=== PATIENT | female | born 1950 | race Caucasian/White ===

== ENCOUNTER 2016-11-05 19:23 | Emergency (ER) | payer BC ==
[~2016-11-05] VITALS: Ht 170.2 cm; Wt 92.0 kg
[~2016-11-05 19:23] MED LIST changes: -NAPR1TAB9 PO; -RIVA1.5T PO; -[UNRECOGNIZED DRUG - CODE] PO
[2016-11-05 19:25] VITALS: TEMP 36.8; Ht 170.2 cm; Wt 92.0 kg
[2016-11-05] MEDS ORDERED: [UNRECOGNIZED DRUG - CODE] PO (20:26)
[2016-11-05] MEDS ORDERED: NAPR1TAB9 PO (20:27)
[2016-11-05] MEDS ORDERED: OPTIRAY 320 IV PRN (20:30)
[2016-11-05 20:36] LABS: BASO % 0.6 %; BASO ABS # 0.04 K/uL (0-0.2); COMPLETE YES; EOS % 4.5 %; HEMATOCRIT 40.6 % (37-47); IG% 0.2 %; LYMPH ABS # 1.95 K/uL (1.2-3.4); MEAN CELL VOLUME 86.4 fL (80-100); MEAN CORPUSCULAR HEMOGLOBIN 29.4 pg (25-34); MEAN PLATELET VOLUME 10.1 fL (7.4-10.4); MONO % 5.2 %; NEUT % 59.5 %; PLATELET COUNT 321 K/uL (130-400); WHITE BLOOD COUNT 6.49 K/uL (4.8-10.8)
[2016-11-05 20:56] LABS: BUN/CREATININE RATIO 17.4 (10-20); CALCIUM 9.1 mg/dl (8.5-10.1); CARBON DIOXIDE 31 mmol/L (21-32); CHLORIDE 102 mmol/L (98-107); CREATININE 0.95 mg/dl (0.60-1.20); GLUCOSE 78 mg/dl (70-99); POTASSIUM 3.5 mmol/L (3.5-5.1); SODIUM 139 mmol/L (136-145)
[2016-11-05 21:22] LABS: BLOOD UREA NITROGEN 17 mg/dl (7-18)
--- NOTE | 2016-11-05 21:37 | DIAGNOSTIC IMAGING REPORT ---
ULTRASOUND VENOUS DOPPLER LWR EXT BILA CLINICAL HISTORY: Lower leg swelling. COMPARISON STUDY: No previous studies for comparison. FINDINGS: On the right, no thrombus is visualized in the common femoral, superficial femoral, or popliteal veins. In the popliteal fossa, there is thrombus within paired veins but these do not appear to represent the posterior tibial peroneal or anterior tibial veins. They potentially represent a superficial perforators. There is a complex popliteal fossa cyst measuring 5.5 cm in maximal diameter. There is thrombus within the greater saphenous vein of the right calf. On the left, there is again no thrombus in the common femoral superficial femoral or popliteal veins. There is again thrombus within paired veins and the popliteal fossa which again do not appear to represent the posterior tibial, peroneal or anterior tibial veins. These again may represent lip reading teacher veins. There is a 5.3 cm left popliteal fossa cyst. IMPRESSION: 1. No evidence of [id number] DVT 2. Bilateral popliteal fossa venous thrombus. I suspect that these represent superficial perforating vessels. 3. Bilateral popliteal cysts 4. Right greater saphenous calf vein thrombus Electronically signed by: Ronni Swan M.D. 11/05/2016 9:36 PM Dictated Date/Time: 11/05/2016 9:28 PM
--- NOTE | 2016-11-05 21:44 | DIAGNOSTIC IMAGING REPORT ---
CT ANGIOGRAM OF THE CHEST CLINICAL HISTORY: Chest pain and leg swelling. COMPARISON STUDY: No previous studies for comparison. TECHNIQUE: Following the IV administration of 92 mL of Optiray-320, CT angiogram of the thorax was performed from the thoracic inlet to the lung bases utilizing the pulmonary embolus protocol. Images are reviewed in the axial, sagittal, and coronal planes. IV contrast was administered without complication. MIP imaging was performed. CT DOSE: 367.26 mGy.cm FINDINGS: There is a partially visualized right renal hypodensity. This likely represents a cyst. There are scattered subcentimeter hepatic hypodensities. No pathologically enlarged axillary mediastinal or hilar lymph nodes were visualized. There was no evidence of thoracic aortic dilatation. There is a tiny left lower lobe pulmonary artery filling defect, consistent with an embolus. No pleural effusions are visualized. There are dependent atelectatic changes. There is no lobar consolidation. IMPRESSION: 1. Tiny left lower lobe pulmonary artery filling defect consistent with a pulmonary embolism Electronically signed by: Ronni Swan M.D. 11/05/2016 9:43 PM Dictated Date/Time: 11/05/2016 9:38 PM
[2016-11-05] MEDS ORDERED: ACETAMINOPHEN 325 MG TAB PO STA (22:03)
[2016-11-05 22:41] LABS: PARTIAL THROMBOPLASTIN RATIO 1.1; PROTHROMBIN TIME (PATIENT) 10.7 SECONDS (9.0-12.0)
[2016-11-05] MEDS ORDERED: RIVAROXABAN TAB 15 MG TAB PO STA (23:50)
--- NOTE | 2016-11-06 | Medical Consult ---
Consultation Date of Consultation: Nov 05, 2016. Attending Physician: Reason for Consultation: DVTs , PE History of Present Illness 65 y/o F Hx depression and HPL. She may have a history of Factor V Leiden mutation as well. She recently travelled to [place] and experienced pain and swelling of both lower extremities. She presented to the ER and a LE US revealed B/L - below the knee DVTs. She was sent for a CTA subsequently which is + for a small LLL PE. She has not had CP or SOB. She has not exhibited tachycardia or hypoxia. The pt has a strong family history of DVTs/PEs but had not previously had a DVT herself. Past Medical/Surgical History HPL Depression Uterine prolapse Family History Patient reports no known family medical history. Hypercoagulable disorder - mother and both daughters - does not know which but thinks it may be Factor V nutation Social History Smoking Status: Never Smoker Housing Status: lives with family Occupation Status: employed Allergies Coded Allergies: No Known Allergies (Verified Allergy, Unknown, 07/20/06) Current Inpatient Medications Current Inpatient Medications Medications (Trade) Dose Ordered Sig/Jennifer Route Start Time Stop Time Status Last Admin Dose Admin Ioversol (Optiray 320) 111 ml UD PRN IV 11/05/16 20:30 11/09/16 20:29 Review of Systems Constitutional: No chills, No fever, No sweats Eyes: No eye pain, No worsening of vision ENT: No hearing loss, No nasal symptoms, No unusual epistaxis Respiratory: No cough, No sputum, No wheezing Cardiovascular: No PND, No chest pain, No orthopnea Abdomen: No nausea, No pain, No vomiting Musculoskeletal: + calf pain, + swelling, No joint pain, No muscle pain Genitourinary - Female: No dysuria, No urinary frequency, No urinary urgency Neurologic: No memory loss, No paralysis, No weakness Psychiatric: No depression symptoms Endocrine: No fatigue Hematologic / Lymphatic: No abnormal bleeding/bruising Integumentary: No rash Allergic / Immunologic: No environmental allergies Physical Exam Date Time Temp Pulse Resp B/P Pulse Ox O2 Delivery O2 Flow Rate FiO2 11/05/16 23:03 92 18 121/80 95 Room Air 11/05/16 19:25 36.8 93 18 130/86 99 Room Air General Appearance: WD/WN, no apparent distress Head: normocephalic, atraumatic Eyes: normal inspection, PERRL, EOMI ENT: normal ENT inspection, hearing grossly normal, TMs normal, pharynx normal Neck: supple, no adenopathy, thyroid normal, no JVD Respiratory/Chest: chest non-tender, lungs clear, normal breath sounds Cardiovascular: regular rate, rhythm, no edema, no gallop, no JVD, no murmur, normal peripheral pulses Abdomen/GI: normal bowel sounds, non tender, soft Back: normal inspection, no CVA tenderness Extremities/Musculoskelatal: + pedal edema, + swelling Neurologic/Psych: flour broker II-XII nml as tested, no motor/sensory deficits, alert, normal mood/affect, normal reflexes, oriented x 3 Skin: normal color, warm/dry, no rash Lymphatic: no adenopathy Laboratory Results Last 24 Hours Test 11/05/16 20:13 11/05/16 22:26 White Blood Count 6.49 K/uL Red Blood Count 4.70 M/uL Hemoglobin 13.8 g/dL Hematocrit 40.6 % Mean Corpuscular Volume 86.4 fL Mean Corpuscular Hemoglobin 29.4 pg Mean Corpuscular Hemoglobin Concent 34.0 g/dl Platelet Count 321 K/uL Mean Platelet Volume 10.1 fL Neutrophils (%) (Auto) 59.5 % Lymphocytes (%) (Auto) 30.0 % Monocytes (%) (Auto) 5.2 % Eosinophils (%) (Auto) 4.5 % Basophils (%) (Auto) 0.6 % Neutrophils # (Auto) 3.86 K/uL Lymphocytes # (Auto) 1.95 K/uL Monocytes # (Auto) 0.34 K/uL Eosinophils # (Auto) 0.29 K/uL Basophils # (Auto) 0.04 K/uL RDW Standard Deviation 41.6 fL RDW Coefficient of Variation 13.0 % Immature Granulocyte % (Auto) 0.2 % Immature Granulocyte # (Auto) 0.01 K/uL Sodium Level 139 mmol/L Potassium Level 3.5 mmol/L Chloride Level 102 mmol/L Carbon Dioxide Level 31 mmol/L Anion Gap 6.0 mmol/L Blood Urea Nitrogen 17 mg/dl Creatinine 0.95 mg/dl Est Creatinine Clear Calc Drug Dose 69.7 ml/min Estimated GFR () 73.4 Estimated GFR (Non- 63.3 BUN/Creatinine Ratio 17.4 Random Glucose 78 mg/dl Calcium Level 9.1 mg/dl Troponin I < 0.015 ng/ml Pro-B-Type Natriuretic Peptide 52 pg/ml Prothrombin Time 10.7 SECONDS Prothromb Time International Ratio 1.0 Activated Partial Thromboplast Time 27.3 SECONDS Partial Thromboplastin Ratio 1.1 Assessment & Plan 65 y/o F Hx depression and HPL. She may have a history of Factor V Leiden mutation as well. She recently travelled to [place] and experienced pain and swelling of both lower extremities. She presented to the ER and a LE US revealed B/L - below the knee DVTs. She was sent for a CTA subsequently which is + for a small LLL PE. She has not had CP or SOB. She has not exhibited tachycardia or hypoxia. The pt has a strong family history of DVT/PEs but had not previously had a DVT herself. 1) PE - DVT/PE - small clot burden in hemodynamically stable pt without cardio or resp symptoms - discussed with both pt and ER MD and will recommend D/C with Xarelto and f/u with H/O. 2) Depression - cont Venlafaxine 3) HPL - cont Statin Total time for this consult including review of previous records, labs, meds, imaging - discussion with ER MD and pt - 31 min
--- NOTE | 2016-11-06 00:10 | EMERGENCY ROOM VISIT NOTE ---
History Report prepared by Bennieibnat: Santi Castaneda Under the Supervision of: Dr. Patricio Sal D.O. First contact with patient: 20:04 Chief Complaint: SWELLING TO EXTREMITY Stated Complaint: SWELLING TO LWR EXT History of Present Illness The patient is a 65 year old female who presents to the Emergency Room with complaints of persistent bilateral lower extremity swelling starting 5 days ago. She denies any difficulty with lying down flat. She has pain with palpation on the side of her legs. She has a family history of blood clots but denies any personal history. She notes that this past weekend she tripped on the [place] and this was at least a 3-[address] ride[address] She does stop and get out to walk because of her knees but notes that she was fairly sedentary. She has no other complaints at this time. Pt denies headache, change in vision, fevers, cough, chest pain, shortness of breath, nausea, vomiting, diarrhea, pain with urination, and melena. Source of History: patient Onset: 5 days ago Position: other (bilateral lower extremities) Quality: other (swelling) Timing: other (persistent) Associated Symptoms: No SOB, No chest pain, No cough, No diarrhea, No fevers , No headache, No nausea, No vomiting Review of Systems See HPI for pertinent positives & negatives. A total of 10 systems reviewed and were otherwise negative. Past Medical & Surgical Medical Problems: (1) Depression Family History Patient reports no known family medical history. Social History Smoking Status: Never Smoker Alcohol Use: none Housing Status: lives with family Occupation Status: employed Current/Historical Medications Scheduled Hydrochlorothiazide (Hctz), 25 MG PO DAILY Lovastatin (Mevacor), 20 MG PO DAILY Primidone (Mysoline), 250 MG PO HS Venlafaxine Hcl (Venlafaxine Hcl Er), 150 MG PO DAILY Venlafaxine Hcl (Venlafaxine Extended Rel), 75 MG PO DAILY Scheduled PRN Naproxen (Aleve), 220 MG PO UD PRN for Pain Allergies Coded Allergies: No Known Allergies (Verified Allergy, Unknown, 07/20/06) Physical Exam Vital Signs Date Time Temp Pulse Resp B/P Pulse Ox O2 Delivery O2 Flow Rate FiO2 11/05/16 23:03 92 18 121/80 95 Room Air 11/05/16 19:25 36.8 93 18 130/86 99 Room Air Physical Exam GENERAL: Sitting up in bed, alert, well appearing, well nourished, no distress, non-toxic EYE EXAM: normal conjunctiva OROPHARYNX: no exudate, no erythema, lips, buccal mucosa, and tongue normal and mucous membranes are moist NECK: supple, no nuchal rigidity, no adenopathy, non-tender. No JVD. LUNGS: Clear to auscultation. Normal chest wall mechanics HEART: no murmurs, S1 normal and S2 normal ABDOMEN: abdomen soft, non-tender, normo-active bowel sounds, no masses, no rebound or guarding. BACK: Back is symmetrical on inspection and there is no deformity, no midline tenderness, no CVA tenderness. SKIN: no rashes and no bruising UPPER EXTREMITIES: upper extremities are grossly normal. LOWER EXTREMITIES: Faint bilateral pitting edema. Calves are equal bilaterally. NEURO EXAM: Normal sensorium, cranial nerves II-XII grossly intact, normal speech, no gross weakness of arms, no gross weakness of legs. Medical Decision & Procedures ER Provider Diagnostic Interpretation: CT and US :Per my review, radiologist interpretation. CT ANGIOGRAM OF THE CHEST CLINICAL HISTORY: Chest pain and leg swelling. COMPARISON STUDY: No previous studies for comparison. TECHNIQUE: Following the IV administration of 92 mL of Optiray-320, CT angiogram of the thorax was performed from the thoracic inlet to the lung bases utilizing the pulmonary embolus protocol. Images are reviewed in the axial, sagittal, and coronal planes. IV contrast was administered without complication. MIP imaging was performed. CT DOSE: 367.26 mGy.cm FINDINGS: There is a partially visualized right renal hypodensity. This likely represents a cyst. There are scattered subcentimeter hepatic hypodensities. No pathologically enlarged axillary mediastinal or hilar lymph nodes were visualized. There was no evidence of thoracic aortic dilatation. There is a tiny left lower lobe pulmonary artery filling defect, consistent with an embolus. No pleural effusions are visualized. There are dependent atelectatic changes. There is no lobar consolidation. IMPRESSION: 1. Tiny left lower lobe pulmonary artery filling defect consistent with a pulmonary embolism Electronically signed by: Ronni Swan M.D. 11/05/2016 9:43 PM Dictated Date/Time: 11/05/2016 9:38 PM ULTRASOUND VENOUS DOPPLER LWR EXT BILA CLINICAL HISTORY: Lower leg swelling. COMPARISON STUDY: No previous studies for comparison. FINDINGS: On the right, no thrombus is visualized in the common femoral, superficial femoral, or popliteal veins. In the popliteal fossa, there is thrombus within paired veins but these do not appear to represent the posterior tibial peroneal or anterior tibial veins. They potentially represent a superficial perforators. There is a complex popliteal fossa cyst measuring 5.5 cm in maximal diameter. There is thrombus within the greater saphenous vein of the right calf. On the left, there is again no thrombus in the common femoral superficial femoral or popliteal veins. There is again thrombus within paired veins and the popliteal fossa which again do not appear to represent the posterior tibial, peroneal or anterior tibial veins. These again may represent section leader screen printing veins. There is a 5.3 cm left popliteal fossa cyst. IMPRESSION: 1. No evidence of [id number] DVT 2. Bilateral popliteal fossa venous thrombus. I suspect that these represent superficial perforating vessels. 3. Bilateral popliteal cysts 4. Right greater saphenous calf vein thrombus Electronically signed by: Ronni Swan M.D. 11/05/2016 9:36 PM Dictated Date/Time: 11/05/2016 9:28 PM Laboratory Results 11/05/16 20:13 Red Blood Count 4.70, Mean Corpuscular Volume 86.4, Mean Corpuscular Hemoglobin 29.4, Mean Corpuscular Hemoglobin Concent 34.0, Mean Platelet Volume 10.1, Neutrophils (%) (Auto) 59.5, Lymphocytes (%) (Auto) 30.0, Monocytes (%) (Auto) 5.2, Eosinophils (%) (Auto) 4.5, Basophils (%) (Auto) 0.6, Neutrophils # (Auto) 3.86, Lymphocytes # (Auto) 1.95, Monocytes # (Auto) 0.34, Eosinophils # (Auto) 0.29, Basophils # (Auto) 0.04 11/05/16 20:13 Test 11/05/16 20:13 11/05/16 22:26 White Blood Count 6.49 K/uL (4.8-10.8) Red Blood Count 4.70 M/uL (4.2-5.4) Hemoglobin 13.8 g/dL (12.0-16.0) Hematocrit 40.6 % (37-47) Mean Corpuscular Volume 86.4 fL (80-100) Mean Corpuscular Hemoglobin 29.4 pg (25-34) Mean Corpuscular Hemoglobin Concent 34.0 g/dl (32-36) Platelet Count 321 K/uL (130-400) Mean Platelet Volume 10.1 fL (7.4-10.4) Neutrophils (%) (Auto) 59.5 % Lymphocytes (%) (Auto) 30.0 % Monocytes (%) (Auto) 5.2 % Eosinophils (%) (Auto) 4.5 % Basophils (%) (Auto) 0.6 % Neutrophils # (Auto) 3.86 K/uL (1.4-6.5) Lymphocytes # (Auto) 1.95 K/uL (1.2-3.4) Monocytes # (Auto) 0.34 K/uL (0.11-0.59) Eosinophils # (Auto) 0.29 K/uL (0-0.5) Basophils # (Auto) 0.04 K/uL (0-0.2) RDW Standard Deviation 41.6 fL (36.4-46.3) RDW Coefficient of Variation 13.0 % (11.5-14.5) Immature Granulocyte % (Auto) 0.2 % Immature Granulocyte # (Auto) 0.01 K/uL (0.00-0.02) Anion Gap 6.0 mmol/L (3-11) Est Creatinine Clear Calc Drug Dose 69.7 ml/min Estimated GFR () 73.4 Estimated GFR (Non- 63.3 BUN/Creatinine Ratio 17.4 (10-20) Calcium Level 9.1 mg/dl (8.5-10.1) Troponin I < 0.015 ng/ml (0-0.045) Pro-B-Type Natriuretic Peptide 52 pg/ml (0-900) Prothrombin Time 10.7 SECONDS (9.0-12.0) Prothromb Time International Ratio 1.0 (0.9-1.1) Activated Partial Thromboplast Time 27.3 SECONDS (21.0-31.0) Partial Thromboplastin Ratio 1.1 Laboratory results per my review. Medications Administered Medications (Trade) Dose Ordered Sig/Jennifer Route Start Time Stop Time Status Last Admin Dose Admin Acetaminophen (Tylenol Tab) 650 mg NOW STAT PO 11/05/16 22:03 11/05/16 22:04 DC 2/1/17 23:05 650 MG ECG Indication: other (bilateral lower extremity edema) Rate (beats per minute): 75 Rhythm: sinus rhythm Findings: no ectopy, other (normal axis) ED Course ED COURSE: Vital signs were reviewed and showed normal. The patients medical record was reviewed The above diagnostic studies were performed and reviewed. ED treatments and interventions as stated above. 2003: The patient was evaluated in room B11B. A complete history and physical examination was performed. 2202: Tylenol Tab 650 mg PO 2206: I discussed the patient's case with [facility] 0: I reevaluated the patient. She does not feel comfortable going home. 0010: D/C to follow up with PCP tomorrow. 0000: Upon reevaluation, the patient is resting comfortably.I discussed my findings with the patient and understands and agrees with the treatment plan. Based on the patients age, coexisting illnesses, exam and lab findings the decision to treat as an outpatient was made. The patient remained stable while under my care. The patient appeared well at the time of discharge. The patient will be evaluated for further management. Medical Decision Differential diagnosis: Etiologies such as DVT, musculoskeletal, infection, joint effusion, trauma, lymphedema, idiopathic, CHF, NH, as well as others were entertained. Patient is a 65-year-old female who presents the ER for swelling in her bilateral lower extremities referred in by her primary care doctor. She is found to have bilateral clots in her popliteal fossa. I discussed this with radiology and they believe that these are in the superficial vein. I did perform a CT PE which did show small left lower PE. There is no heart strain. She has no chest pain or shortness of breath. Troponin was negative. Heart rate and vitals have been stable. Patient has no respiratory complaints. Consult medicine they recommended following up as an outpatient. Patient was given doses or also following discussion instructed to follow-up with her primary care doctor in 24 hours. She is no bleeding risk factors. No intracranial bleeds. No blood in her stool. She has not been urinating blood. No recent trauma. No recent surgeries. The risk and benefits of anticoagulation was explained to this patient. She has multiple family members on anticoagulation. Risk and benefits were explained in regards to Coumadin/ Lovenox versus rivaroxaban and she chose rivaroxaban. Stressed the importance if any trauma she needs to return to the ER immediately. She'll follow with her primary care doctor tomorrow. Discussed with Pt concerning signs and symptoms to watch out for. Pt was instructed to follow up with their PCP and discussed with the patient their option to return to the ED at anytime for persistent or worsening symptoms. The appropriate anticipatory guidance and out- patient management, including indications for return to the emergency department , were explained at length to the patient and understood. Consults Time Called: 2204 Consulting Physician: Dr. Mcbride, from [facility] Returned Call: 2206 I discussed the patient's case with Dr. Mcbride, from [facility]. Impression Primary Impression: Pulmonary embolism Additional Impression: Superficial thrombosis of both lower extremities Scribe Attestation The scribe's documentation has been prepared under my direction and personally reviewed by me in its entirety. I confirm that the note above accurately reflects all work, treatment, procedures, and medical decision making performed by me. Departure Information Referrals Maria Dolores Retana M.D. (PCP) Patient Instructions My [facility] Problem Qualifiers Primary Impression: Pulmonary embolism Pulmonary embolism type: other Chronicity: acute Acute cor pulmonale presence: without acute cor pulmonale Qualified Codes: I26.99 - Other pulmonary embolism without acute cor pulmonale
[2016-11-06] MEDS ORDERED: RIVA1.5T PO (00:16)
[2016-11-06] MEDS ORDERED: RIVAROXABAN TAB 15 MG TAB PO SCH (08:00)
[2016-11-06 08:06] VITALS: BP 108/70; PULSE 79; O2SAT 96
== END 2016-11-06 08:06 | disposition home or self-care (01) ==
LOC: C.EDB 19:24
DX: I26.99 Other pulmonary embolism without acute cor pulmonale (principal); I82.403 Acute embolism and thrombosis of unspecified deep veins of lower extremity, bilateral; F32.9 Major depressive disorder, single episode, unspecified

== ENCOUNTER → 2016-11-05 | Outpatient (CLI) | payer BC ==
[~2016-11-05] MED LIST: FLNIN NAE; HYDR25TA4 PO; LOVA20TA4 PO; NAPR1TAB9 PO; PRIM50TA29 PO; RIVA1.5T PO; VENL150T33 PO; VENL75CA73 PO; [UNRECOGNIZED DRUG - CODE] PO
[2016-11-05 18:18] LABS: BASO % 0.7 %; BASO ABS # 0.04 K/uL (0-0.2); COMPLETE YES; EOS % 4.4 %; HEMATOCRIT 38.4 % (37-47); IG% 0.2 %; LYMPH % 26.9 %; LYMPH ABS # 1.58 K/uL (1.2-3.4); MEAN CELL VOLUME 85.5 fL (80-100); MEAN CORPUSCULAR HEMOGLOBIN 28.7 pg (25-34); MEAN CORPUSCULAR HGB CONC 33.6 g/dl (32-36); MEAN PLATELET VOLUME 10.2 fL (7.4-10.4); MONO % 4.6 %; NEUT % 63.2 %; PLATELET COUNT 308 K/uL (130-400); RED BLOOD COUNT 4.49 M/uL (4.2-5.4); WHITE BLOOD COUNT 5.88 K/uL (4.8-10.8)
[2016-11-05 18:36] LABS: ALT/SGPT 22 U/L (12-78); BLOOD UREA NITROGEN 11 mg/dl (7-18); BUN/CREATININE RATIO 11.3 (10-20); CALCIUM 8.7 mg/dl (8.5-10.1); CARBON DIOXIDE 26 mmol/L (21-32); CHLORIDE 103 mmol/L (98-107); CHOLESTEROL 216 mg/dl (0-200); CREATININE 0.95 mg/dl (0.60-1.20); GLUCOSE 93 mg/dl (70-99); POTASSIUM 3.7 mmol/L (3.5-5.1); SODIUM 140 mmol/L (136-145); TRIGLYCERIDES 175 mg/dl (0-150); VERY LOW DENSITY LIPOPROT CALC 35 mg/dl
[2016-11-05 18:44] LABS: ALB/GLOB RATIO 1.1 (0.9-2); ALKALINE PHOSPHATASE 75 U/L (45-117); AST/SGOT 22 U/L (15-37); CHOLESTEROL/HDL RATIO 2.3; HDL CHOLESTEROL 92 mg/dl; LDL CHOLESTEROL CALCULATED 89 mg/dl; THYROID STIMULATING HORMONE 0.697 uIu/ml (0.300-4.500)
== END | disposition home or self-care (01) ==
LOC: C.LABMFLN 17:05
PROVIDERS: ATTEND Family Medicine
DX: R60.0 Localized edema (principal); R06.02 Shortness of breath; E78.5 Hyperlipidemia, unspecified

== ENCOUNTER → 2017-01-29 | Outpatient (CLI) | payer BC ==
[~2017-01-29] MED LIST changes: -FLNIN NAE; +NAPR1TAB9 PO; -PRIM50TA29 PO; +RIVA1.5T PO; +[UNRECOGNIZED DRUG - CODE] PO
--- NOTE | 2017-01-29 15:08 | MAMMOGRAPHY REPORT ---
BILATERAL DIGITAL SCREENING MAMMOGRAM WITH CAD: 01/29/2017 CLINICAL HISTORY: Routine screening. Patient has no complaints. TECHNIQUE: Current study was also evaluated with a Computer Aided Detection (CAD) system. Bilatera l CC and MLO views were obtained. COMPARISON: Comparison is made to exams dated: 12/20/2013 mammogram, 07/02/2011 mammogram, 09/04/2009 mammogram - [facility], 05/10/2008, 04/29/2007, and 01/29/2006 mammogram - [facility]. BREAST COMPOSITION: There are scattered areas of fibroglandular density in both breasts. FINDINGS: No suspicious masses, calcifications, or areas of architectural distortion are noted in e ither breast. There has been no significant interval change compared to prior exams. Scattered bilat eral benign-appearing calcifications are not significantly changed. IMPRESSION: ACR BI-RADS CATEGORY 2: BENIGN There is no mammographic evidence of malignancy. A 1 year screening mammogram is recommended. The p atient will receive written notification of the results. Approximately 10% of breast cancers are not detected with mammography. A negative mammographic repor t should not delay biopsy if a clinically suggestive mass is present. Patricia Chavez M.D. /:01/29/2017 12:12:47 Computer Game Designer: Kailey Hess, [facility] letter sent: Normal 1/2 BI-RADS Code: ACR BI-RADS Category 2: Benign
== END | disposition home or self-care (01) ==
LOC: C.MAMM 10:42
PROVIDERS: ATTEND Obstetrics & Gynecology
DX: Z12.31 Encounter for screening mammogram for malignant neoplasm of breast (principal)

== ENCOUNTER → 2017-04-27 | Outpatient (CLI) | payer BC ==
--- NOTE | 2017-04-27 13:44 | DIAGNOSTIC IMAGING REPORT ---
LEFT LOWER EXTREMITY VENOUS DOPPLER CLINICAL HISTORY: Left leg pain and swelling. COMPARISON STUDY: Bilateral lower extremity venous Doppler November 05, 2016. TECHNIQUE: Sonography of the deep venous system of the left lower extremity was performed. Compression and augmentation were evaluated. FINDINGS: The left common femoral, superficial femoral and popliteal veins were compressible. Augmentation was normal. Flow was shown within the deep calf vessels. Note is made of a 5.5 x 1.5 x 4.4 cm complex left popliteal fluid collection suggestive of a popliteal cyst. In addition, there is an 11.1 x 6.8 x 1.5 cm elongated complex medial left calf fluid collection without color flow. IMPRESSION: 1. No evidence of deep venous thrombus within the left lower extremity. 2. 11.1 x 6.8 x 1.5 cm elongated complex left calf fluid collection which favors a hematoma. 3. 5.5 x 4.1 x 1.5 cm left popliteal cyst. Electronically signed by: Neymar Rojo M.D. 04/27/2017 1:43 PM Dictated Date/Time: 04/27/2017 1:41 PM
== END | disposition home or self-care (01) ==
LOC: C.ULTRBC 12:27
PROVIDERS: ATTEND Family Medicine
DX: M79.605 Pain in left leg (principal); Z86.718 Personal history of other venous thrombosis and embolism

== ENCOUNTER → 2017-10-30 | Outpatient (CLI) | payer BC | END | disposition home or self-care (01) | LOC: C.LABMFLN 13:49 | PROVIDERS: ATTEND Physician Assistant | DX: J10.1 Influenza due to other identified influenza virus with other respiratory manifestations (principal) ==

== ENCOUNTER 2025-07-03 05:30 | Observation (INO) ==
--- NOTE | 2025-06-01 14:24 | PAT Medication Instructions ---
Medication Instructions Date of Service June 01, 2025 Home Medications Medication Instructions Recorded venlafaxine 75 mg capsule,extended 75 mg PO QAM #90 caps 10/20/24 release 24 hr primidone 250 mg tablet 250 mg PO QPM #90 tabs 12/29/24 hydrochlorothiazide 25 mg tablet 25 mg PO QAM #90 tabs 03/07/25 venlafaxine 150 mg 150 mg PO QAM #90 caps 03/16/25 capsule,extended release 24 hr cholecalciferol (vitamin D3) 50 mcg (2,000 unit) capsule 2,000 units PO QAM cyanocobalamin (vitamin B-12) 1,000 mcg capsule 1,000 mcg PO QAM venlafaxine 75 mg capsule,extended release 24 hr 75 mg PO QAM primidone 250 mg tablet 250 mg PO QPM hydrochlorothiazide 25 mg tablet 25 mg PO QAM venlafaxine 150 mg capsule,extended release 24 hr 150 mg PO QAM latanoprost 0.005 % eye drops 1 drp OPB HS primidone 50 mg tablet 50 mg PO QPM rosuvastatin 5 mg tablet 5 mg PO QPM DO NOT take the morning of surgery cholecalciferol (vitamin D3) 50 mcg (2,000 unit) capsule 2,000 units PO QAM cyanocobalamin (vitamin B-12) 1,000 mcg capsule 1,000 mcg PO QAM hydrochlorothiazide 25 mg tablet 25 mg PO QAM Take morning of surgery With a small sip of water, OTHERWISE NOTHING TO EAT OR DRINK AFTER MIDNIGHT: venlafaxine 75 mg capsule,extended release 24 hr 75 mg PO QAM venlafaxine 150 mg capsule,extended release 24 hr 150 mg PO QAM Take evening before surgery primidone 250 mg tablet 250 mg PO QPM latanoprost 0.005 % eye drops 1 drp OPB HS primidone 50 mg tablet 50 mg PO QPM rosuvastatin 5 mg tablet 5 mg PO QPM Other Notes If you have any questions please call us at [phone] or [phone] or [phone] or [phone]
--- NOTE | 2025-06-08 12:58 | Anesthesiology Consultation ---
Date of Service June 08, 2025 Assessment & Plan (1) Encounter for pre-operative examination: - Outpatient joint assessment: Patient is currently scheduled for inpatient pathway. If re-evaluated and patient/surgeon requests outpatient pathway, patient is not a candidate for outpatient joint program. Chart Review Chart Review: Acceptable Risk for Surgery and Patient seen in Pre Admission Testing Teaching & Discussion Pre-Anesthesia Teaching/Discussion Notes: Instructed NPO after midnight before surgery, except medications with 15 cc of water. Medication instructions provided according to the PAT guidelines. History Surgery Operation Date: 07/03/25 07:00 Proposed Procedures p Left Total Knee Arthroplasty - Aydin Soria MD Height/Weight Height: 5 ft 7 in Weight: 84.4 kg Allergies Allergy/AdvReac Type Severity Reaction Status Date / Time No Known Allergies Allergy Unknown Verified 06/01/25 08:12 Medications Home Medications Medication Instructions Recorded Confirmed Last Taken cholecalciferol (vitamin D3) 50 2,000 units PO QAM 07/17/21 06/01/25 08/19/21 08:00 mcg (2,000 unit) capsule cyanocobalamin (vitamin B-12) 1,000 mcg PO QAM 03/11/24 06/01/25 Unknown 1,000 mcg capsule venlafaxine 75 mg capsule,extended 75 mg PO QAM #90 caps 10/20/24 06/01/25 U nknown release 24 hr primidone 250 mg tablet 250 mg PO QPM #90 tabs 12/29/24 06/01/25 Unknown hydrochlorothiazide 25 mg tablet 25 mg PO QAM #90 tabs 03/07/25 06/01/25 Unknown venlafaxine 150 mg 150 mg PO QAM #90 caps 03/16/25 06/01/25 Unknown capsule,extended release 24 hr latanoprost 0.005 % eye drops 1 drp OPB HS 06/01/25 06/01/25 Unknown primidone 50 mg tablet 50 mg PO QPM 06/01/25 06/01/25 Unknown rosuvastatin 5 mg tablet 5 mg PO QPM 06/01/25 06/01/25 Unknown Past Medical History Medical History (Updated 06/08/25 @ 13:19 by Alyse Boone PA-C) Chronic back pain following with [place] PCP Depression Essential tremor Glaucoma History of Mohs micrographic surgery for skin cancer Hx of basal cell carcinoma removed Hx of deep venous thrombosis (~2016) right leg Hx of edema lt ankle, worse in summer-denies change or worsening Hx pulmonary embolism (~2016) noted in 2017 heme/onc f/u note Hyperlipidemia Lupus anticoagulant positive f/u PCP, no longer has to see hematology per pt-states plans to resume Xarelto post-op per her discussion with surgeon 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 Exercise / Class Metabolic Activity III < 4 Walking/Shop/Light housework (denies chest discomfort or shortness of breath with usual activities-limits walking up stairs due to knee pain) Past Family History Family History Mother Factor V Leiden Father Prostate cancer Daughter Clotting disorder Other No family history of adverse response to anesthesia Denies family history of Ovarian cancer Diabetes Breast cancer Lung cancer Colorectal cancer Stroke Past Surgical History Surgical History H/O colonoscopy (2020) History of removal of cyst (06/28/24) FINAL DIAGNOSIS in office procedure Dr. Kaplan Skin, mid back (excision): - Epidermal cyst (see comment) History of tooth extraction Hx of bilateral cataract extraction Hx of hysterectomy w/ lt salpingo-oophorectomy Hx of LASIK Past Anesthesia History No Hx of Anesthesia Complications and No Family Hx of Anesthesia Complications History of PONV No Hx of PONV and No Hx of Motion Sickness Social History Smoking Status: Former smoker Do You Dip or Chew Tobacco: No Smoking End Date: Hx Alcohol Use: Yes Alcohol type: hard liquor alcohol intake frequency: a few times a month Alcohol Intake Frequency Comment: socially Hx Substance Use: No substance use type: does not use Review of Systems Snoring, denies witnessed apneas. Patient denies chest pain, shortness of breath, dyspnea on exertion, reflux, fever, chills, cough, wheezing, or palpitations. Physical Exam Vital Signs Vitals BP 113/72 P 84 TEMP 98.3 SP02 96% on RA RESP 18 Physical Patient resting comfortably in chair in no acute distress, alert and oriented, responding appropriately throughout visit Full cervical extension range of motion without pain TMD 3.5 finger breadths Mallampati Score 2 Dentition: implant, cap/crown front upper tooth, denies chipped or loose teeth, or bridges Lungs: normal respiratory effort. Good air movement, clear throughout to auscultation, no adventitious breath sounds Cardiac: regular rate and rhythm, no murmurs noted Carotid arteries: negative bruit bilat Lab Results Anesthesia Preop Results Results Anesthesia Widget: WBC 5.18 K/ul (4.8-10.8) 06/08/25 Hgb 12.4 g/dl (12.0-16.0) 06/08/25 Hct 35.9 % (37.0-47.0) L 06/08/25 Plt 325 K/uL (130-400) 06/08/25 Na 134 mmol/L (136-145) L 06/08/25 K 3.6 mmol/L (3.5-5.1) 06/08/25 Cl 97 mmol/L (98-107) L 06/08/25 CO2 32 mmol/L (21-32) 06/08/25 BUN 12 mg/dl (6-23) 06/08/25 Creat 0.84 mg/dl (0.6-1.2) 06/08/25 Glucose Level 90 mg/dl (70-99(Fasting)) 06/08/25 PT 10.8 Seconds (9.0-12.0) 06/08/25 PTT 29 Seconds (21-31) 06/08/25 INR 1.0 (0.9-1.1) 06/08/25 Blood Type A Negative 06/08/25 Antibody Screen NEGATIVE 06/08/25 Testing Electrocardiogram Date: 06/08/25 NSR, rate 80 bpm Incomplete RBBB Chest X-Ray Date: 11/07/24 No pneumonia seen.
--- NOTE | 2025-06-27 17:21 | History & Physical Report ---
Date of Service June 27, 2025 Assessment & Plan (1) Degenerative arthritis of knee, bilateral: 74-year-old female with advanced bilateral moderate to advanced tricompartment DJD most severe in the patellofemoral compartment. She has failed conservative measures. She like to have her knees fixed. The left knee is bothering more than the right. She does have this prothrombin gene mutation and had 1 DVT and PE in the past. Will use Xarelto for DVT prophylaxis for 30 days. Please plan to be discharged to home with family and friends assistance. There is some vent this procedure explained. Informed consent was obtained. (2) Prothrombin [id number] mutation: (3) Personal history of DVT (deep vein thrombosis): (4) History of pulmonary embolism: (5) Hyperlipidemia: History of Present Illness Chief Complaint: . Bilateral knee pain discomfort left side greater than the right. Primary Care Provider: LLOYD Gleason . The patient is a 74-year-old female who presents for follow-up and treatment of her knees. She had a long history of bilateral knee pain discomfort described to gotten worse over time. Initially started in her right knee but the left knee bothers her more now. She describes lateral knee pain and discomfort going up and down steps. She is having difficulty maintaining an activity level. She has been through extensive conservative treatment occluding injections which have become less successful over time. She has a limited walking tolerance. That she would like to have her knees fixed. Of note, patient does have a prothrombin gene mutation and was on anticoagulation in the past but not currently. She does have a history of 1 DVT in the past. Allergies Allergy/AdvReac Type Severity Reaction Status Date / Time No Known Allergies Allergy Unknown Verified 06/26/25 13:26 Home Medications Medication Instructions Recorded Confirmed Type cholecalciferol (vitamin D3) 50 2,000 units PO QAM 07/17/21 06/26/25 History mcg (2,000 unit) capsule cyanocobalamin (vitamin B-12) 1,000 mcg PO QAM 03/11/24 06/26/25 History 1,000 mcg capsule venlafaxine 75 mg capsule,extended 75 mg PO QAM #90 caps 10/20/24 06/26/25 Rx release 24 hr primidone 250 mg tablet 250 mg PO QPM #90 tabs 03/27/25 09/22/25 Rx hydrochlorothiazide 25 mg tablet 25 mg PO QAM #90 tabs 03/07/25 06/26/25 Rx venlafaxine 150 mg 150 mg PO QAM #90 caps 03/16/25 06/26/25 Rx capsule,extended release 24 hr latanoprost 0.005 % eye drops 1 drp OPB HS 06/01/25 06/26/25 History primidone 50 mg tablet 50 mg PO QPM 06/01/25 06/26/25 History rosuvastatin 5 mg tablet 5 mg PO QPM #90 tabs 06/16/25 06/26/25 Rx Past Med/Surg History Problem List Other symptoms and signs involving cognitive functions and awareness Strain of left hamstring Prediabetes Sciatica Foot pain, bilateral Degenerative arthritis of knee, bilateral Insomnia Edema Generalized osteoarthritis of multiple sites (Chronic) History of basal cell carcinoma (Chronic) History of pulmonary embolism (Chronic) Lupus anticoagulant positive (Chronic) Overweight (BMI 25.0-29.9) (Chronic) Prothrombin [id number] mutation (Chronic) Personal history of DVT (deep vein thrombosis) 2017/R LEG Depression Essential tremor Hyperlipidemia Medical History Glaucoma Chronic back pain following with [facility] Prothrombin [id number] mutation previously on xarelto; f/u PCP, states plans to resume Xarelto post-op per her discussion with surgeon Lupus anticoagulant positive f/u PCP, no longer has to see hematology per pt-states plans to resume Xarelto post-op per her discussion with surgeon Hyperlipidemia Hx pulmonary embolism (~2016) noted in 2017 heme/onc f/u note Hx of deep venous thrombosis (~2016) right leg History of Mohs micrographic surgery for skin cancer Hx of basal cell carcinoma removed Essential tremor Hx of edema lt ankle, worse in summer-denies change or worsening Depression Surgical History Hx of LASIK Hx of bilateral cataract extraction Hx of hysterectomy w/ lt salpingo-oophorectomy History of removal of cyst (06/28/24) FINAL DIAGNOSIS in office procedure Dr. Kaplan Skin, mid back (excision): - Epidermal cyst (see comment) H/O colonoscopy (2021) History of tooth extraction Family History Mother Factor V Leiden Father Prostate cancer Daughter Clotting disorder Other No family history of adverse response to anesthesia Denies family history of Ovarian cancer Diabetes Breast cancer Lung cancer Colorectal cancer Stroke Social History Smoking Status: Former smoker Tobacco Type: Cigarettes Age Started Using Tobacco: 19; Age Quit Using Tobacco: 26; packs per day: 1; Second Hand Exposure: No; Do You Dip or Chew Tobacco: No; Hx Alcohol Use: Yes Alcohol type: hard liquor Hx Substance Use: No Preferred Language: [place] Communication Ability: Effective Visual Impairment: Limited Hearing Ability: Normal Skid Worker Required: No Beliefs That Will Affect Care: None marital status: / Current Living Situation: Alone current occupational status: retired 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 Physical Exam . Physical examination reveals a pleasant middle-age female looks in pretty good health. Examination of both knees reveal patient ambulates independently. Fairly neutral alignment to her knees. Small knee effusion. Range of motion of the left is about 5-1 20 and the right is 5-1 25. She does have patellofemoral crepitance bilaterally. No instability and no pain with hip motion on either side. She is neurologically intact. Constitutional WD/WN, vitals as above Respiratory normal respiratory effort, lungs clear to auscultation Cardiovascular RRR, no murmur, no edema Gastrointestinal (Abdomen) normal bowel sounds, soft, nontender, no hepatosplenomegaly Results & Data Results & Data Laboratory Results . Diagnostic Findings . X-rays of both knees were reviewed. She got bilateral tricompartment DJD. She has advanced patellofemoral disease with more moderate tibiofemoral disease. Left knee is a little bit worse than the right. PG Care Time/CCT Total # of Minutes Spent Total Time Spent with Patient: Total time spent is greater than 50% in coordination of care (as documented) at patient's floor/unit and/or counseling patient: Coding Level of Care Code None Diagnoses Degenerative arthritis of knee, bilateral M17.0 Prothrombin [id number] mutation D68.52 Personal history of DVT (deep vein thrombosis) Z86.718 History of pulmonary embolism Z86.711 Hyperlipidemia E78.5
[2025-07-03] MEDS ORDERED: BUPIVACAINE 0.5 % 5 MG/1 ML PF 10ML VIAL ONE (06:01)
[2025-07-03] MEDS ORDERED: BUPIVACAINE 0.25% PF 30 ML VIAL ONE (06:01)
[2025-07-03] MEDS: LR 500ML BOLUS, THEN 15ML/HR IV SCH (06:04)
[2025-07-03] MEDS: LR 60ML/HR IV SCH (06:04)
[2025-07-03] MEDS: CeleBREX 200 MG CAP PO SCH (06:05)
[2025-07-03] MEDS: ACETAMINOPHEN 500 MG TAB PO SCH ×2 (06:05→13:54)
[2025-07-03] MEDS: METOCLOPRAMIDE HCL 10 MG TABLET PO SCH (06:05)
[2025-07-03] MEDS: dexAMETHasone**PF** 10 MG/ML VIAL IV SCH (06:05)
[2025-07-03] MEDS: FAMOTIDINE 20 MG TAB PO SCH (06:06)
[2025-07-03] MEDS ORDERED: MIDAZOLAM HCL 1 MG/ML 2ML VIAL ONE (06:14)
[2025-07-03] MEDS ORDERED: ROPIVACAINE 0.5% 5 MG/ML 30 ML VIAL ONE (06:21)
[2025-07-03] MEDS ORDERED: ATROPINE SULFATE 0.1 MG/ML 10ML SYR IV PRN (06:29)
[2025-07-03] MEDS ORDERED: ONDANSETRON INJ 2 MG/ML 2 ML VIAL IV PRN ×2 (06:29→10:11)
[2025-07-03] MEDS ORDERED: PROPOFOL IV EMULSION 10 MG/ML 100 ML VIAL IV ONE (06:46)
--- NOTE | 2025-07-03 06:48 | History & Physical Bridge Note ---
Date of Service July 03, 2025 History & Physical Bridge Note I have examined the patient, reviewed the History & Physical and in the interval since the performance of the History & Physical I have noted the following changes of clinical significance: no changes noted
[2025-07-03] MEDS ORDERED: LIDOCAINE 2% 2 ML VIAL/AMP(20MG/ML) INFIL ONE (06:50)
[2025-07-03] MEDS: ORTHO JOINT ANESTHETIC ONE (07:38)
[2025-07-03] MEDS: ROPIV 0.5% 246mg, Ketorolac 30mg, EPINEPHrine 0.5mg in NSS INFIL SCH (08:12)
[2025-07-03] MEDS ORDERED: TRANEXAMIC ACID / 0.7% NACL 1000MG/100ML BAG IV ONE (08:14)
--- NOTE | 2025-07-03 09:03 | Operative Report ---
PG Post Operative Report Pre & Post Diagnosis Operation Date: 07/03/25 07:00 Pre-Op Diagnosis: Degenerative arthritis of knee, bilateral Post-Op Diagnosis: Degenerative arthritis of knee, bilateral I identified the patient and participated in the time-out.: Yes Procedure Operation Date: 07/03/25 07:00 Actual Procedures p Left Total Knee Arthroplasty(Left) - Aydin Soria MD Surgeon Aydin Soria MD Natural Sciences Professor Stan Ram PA-C Estimated Blood Loss 50 Findings Consistent with Post-Op Diagnosis Operative findings were advanced left knee tricompartment DJD. She had pretty extensive grade 4 [id number] disease in all 3 compartments probably most severe in the patellofemoral compartment. Specimens Left knee sent for pathology. Anesthesia Type Spinal MAC Complications none Disposition Accompanied Patient To Recovery: No Indications Patient is a 74-year-old female with a long history of bilateral knee pain discomfort described to gotten worse over time. She failed conservative measures. X-rays show advanced left knee DJD. She elected proceed with left total knee arthroplasty. Description of Procedure Operative implants consist of: 1 Biomet Vanguard size 65 left posterior stabilized femoral component. 2. Biomet size 71 tibial tray. 3. 12 mm posterior stabilized polyethylene insert. 4. 28 x 8 all poly patella. The patient was taken the op room, identified, placed on the operating table in the supine position. All contact areas were appropriately padded. IV antibiotics arrived by anesthesia team. Spinal anesthetic and adductor canal block had been provided in the holding area. A Yeh catheter was placed in sterile fashion. A left phytate was then placed. The left lower extremity was then prepped and draped in usual sterile fashion. The left leg was elevated and exsanguinated with use of an Esmarch. The tourniquet was placed at 300 mmHg. An anterior approach to the left knee was then performed to longitudinal incision centered over the patella. Sharp dissection was Through subcutaneous tissue down to the extensor mechanism. A medial parapatellar arthrotomy incision was made. Some subperiosteal dissection was carried out medially. The fat pad was dissected from Neath patella tendon. The lateral patellofemoral ligament was released. Patella was subluxated laterally knee was flexed. The osteophytes taken off distal femur. The ACL and PCL were then released from the distal femur and the tibia subluxated anteriorly. The external tibial LYMErix then placed on the anterior face of the tibia and adjusted 14 mm medially. The proximal tibial cut was made remove about 3 mm. Of bone from the medial side. Some osteophytes taken off medially. Tibia sized to a size 71. Attention drawn the femur. The distal femur was entered with a sharp drill. Intramedullary canal was suction. A left 5 degree valgus cutting guide was placed. Distal femoral cutting block was pinned in place. Distal femoral cut was made take an additional 3 mm of bone off distal femur. The femur was then sized to a size 65. The AP cutting block was pinned parallel to the epicondylar axis which was 5 degrees of external rotation. The anterior cut, anterior chamfer, posterior cut, posterior chamfer cuts were made. The box cutting guide was placed and just slight laterally. The box cut was made. The knee was flexed. The remnants of the medial and lateral menisci were excised. The osteophytes taken off the posterior aspect of femur. A trial femoral component was placed. Tibial tray was then pinned in Tessa external rotation and the drill and stem punch were used to create defect in the proximal tibia for the tibial tray. The knee was then trialed and the 12 mm insert fit most appropriately. Attention drawn the patella. The patella was cleaned of all soft tissues. Patella thickness measured about 18 mm in thickness was cut down to 13. Was sized to a size 28 patella. The lug holes were drilled for the 28 patella. Lateral osteophytes removed. Patella button was placed. Knee was taken through range of motion and the patella tracked nicely with no thumbs test. Attention jointer placed in permanent components. All trial components were removed. Bone plug was placed and distal femur limit blood loss. A double batch Palacos G cement was mixed. Biomet Vanguard size 65 left posterior stabilized femoral component, size 71 tibial tray, 12 mm posterior stabilized polyethylene insert, and a 28 x 8 all poly patella then cemented in place. The knee was brought out into full extension till cement hardened. Final cement check was then performed. The pericapsular tissues were injected with a total of 100 cc of Ortho mix. Patient did receive 1 g tranexamic acid. The tourniquet was then let down for final tourniquet time of 56 minutes. Hemostasis reduced electrocautery. Extensor Meclomen then closed with combination 1 PDS suture #1 Vicryl suture in a [id number] fashion. The extensor mechanism was checked and found to be intact. Subcutaneous tissue was then closed with 2-0 Dexon suture in a buried interrupted fashion and the skin was then closed with skin baron. Leg was then cleaned and dried and a sterile dressing was Xeroform, 4 fours, sterile cast padding, Marcos bandage were applied. Patient then transferred to the recovery room in stable condition. Patient tolerated procedure well and no complications. Stan Ram, my physician bilingual medical assistant, was present for the entire procedure. His assistance was required for proper patient positioning, prepping and draping, s urgical exposure, retraction, perform the technical details of the operation, placement of the implants, closure of the incision site and placement of the postoperative sterile bandage. I attest to the content of the Intraoperative Record and any orders documented therein. Any exceptions are noted below.
--- NOTE | 2025-07-03 09:20 | XRay Report ---
XR knee LT 1 or 2V routine CLINICAL HISTORY: Surgical Post Op COMPARISON: 04/30/2017 FINDINGS: Left knee prosthesis shows no hardware complication. There is expected soft tissue gas. Sk in baron are present. IMPRESSION: Unremarkable postoperative exam. ACT 112: Negative or not required by law. Electronically signed by: Williams De Leon M.D. 07/03/2025 9:18 AM
[2025-07-03] MEDS ORDERED: HYDROmorphone INJ 0.5 MG/0.5 ML SYR IV PRN (10:11)
[2025-07-03] MEDS ORDERED: METOCLOPRAMIDE HCL INJ 5 MG/ML 2 ML VIAL IV PRN (10:11)
[2025-07-03] MEDS ORDERED: ALUMINUM/MAGNESIUM SUSP 30 ML UDC PO PRN (10:11)
[2025-07-03] MEDS ORDERED: MAGNESIUM HYDROXIDE SUSP 30 ML UDC PO PRN (10:11)
[2025-07-03] MEDS ORDERED: NALOXONE HCL 0.4 MG/1 ML VIAL/CARP IV PRN (10:11)
--- NOTE | 2025-07-03 10:33 | Anesthesiology Progress Note ---
Date of Service July 03, 2025 Anesthesia Post Procedure Vital Signs Vital Signs: Temp Pulse Pulse Resp BP Pulse Ox O2 Del Method 07/03/25 10:15 97.5 F L 85 14 116/78 99 Room Air 07/03/25 10:00 98.1 F 84 19 120/77 100 Room Air 07/03/25 09:50 79 18 126/79 99 Room Air 07/03/25 09:40 80 14 128/78 100 Room Air 07/03/25 09:30 77 14 124/78 99 Room Air 07/03/25 09:20 79 18 114/82 100 Room Air 07/03/25 09:10 85 19 107/71 99 Room Air 07/03/25 09:00 82 17 113/69 100 Oxymask 07/03/25 08:52 96.8 F L 92 H 17 120/70 98 Oxymask 07/03/25 05:51 98.1 F 77 18 137/79 99 Room Air O2 Flow Rate 07/03/25 10:15 07/03/25 10:00 07/03/25 09:50 07/03/25 09:40 07/03/25 09:30 07/03/25 09:20 07/03/25 09:10 07/03/25 09:00 6 07/03/25 08:52 10 07/03/25 05:51 Transfer of Care Handoff Completed per policy Notes Mental Status: alert / awake / arousable and participated in evaluation Patient Amnestic to Procedure: Yes Nausea / Vomiting: adequately controlled Pain: adequately controlled Airway Patency, RR, SpO2: stable & adequate BP & HR: stable & adequate Hydration State: stable & adequate Neuraxial Anesthesia: was administered and sensory block is resolving Anesthetic Complications: no major complications apparent and Pt Satisfied with anesthetic care
[2025-07-03] MEDS: SODIUM CHLORIDE 0.9% 1,000 ML IV SCH (10:55)
[2025-07-03] MEDS: DOCUSATE SODIUM 100 MG CAP PO SCH (11:14)
[2025-07-03] MEDS: SENNA 8.6 MG TAB PO SCH (11:14)
[2025-07-03] MEDS: MULTIVITAMIN TAB PO SCH (11:15)
[2025-07-03] MEDS: KETOROLAC TROMETHAMINE 15 MG/ML VIAL IV SCH (11:15)
[2025-07-03] MEDS: hydroCHLOROthiazide 25 MG TAB PO SCH (12:23)
[2025-07-03] MEDS: TRANEXAMIC ACID / 0.7% NACL 1,000 MG/100 ML BAG IV SCH (14:00)
[2025-07-03] MEDS: ASCORBIC ACID 500 MG TAB PO SCH (17:46)
[2025-07-03] MEDS ORDERED: SENNA 8.6 MG TAB PO SCH (21:00)
[2025-07-03] MEDS: ROSUVASTATIN CALCIUM 5 MG TAB PO SCH (21:07)
[2025-07-03] MEDS: PRIMIDONE 50 MG TAB PO SCH (21:08)
[2025-07-03] MEDS: PRIMIDONE 250 MG TAB PO SCH (21:08)
[2025-07-03] MEDS: LATANOPROST 0.005% OP SOLN 2.5 ML BTL OPB SCH (21:44)
[2025-07-04 07:18] VITALS: BP 118/72; PULSE 82; RESP 17; TEMP 97.5; O2SAT 100
[2025-07-04] MEDS: VENLAFAXINE HCL XR 75 MG CAPXR PO SCH (07:20)
[2025-07-04] MEDS: RIVAROXABAN 10 MG TABLET PO SCH (07:20)
[2025-07-04] MEDS: VENLAFAXINE HCL XR 150 MG CAPXR PO SCH (07:20)
[2025-07-04] MEDS: CHOLECALCIFEROL 25 MCG (1000 UNITS) TAB PO SCH (07:20)
[2025-07-04] MEDS: CYANOCOBALAMIN (B-12) 500 MCG TABLET PO SCH (07:20)
[2025-07-04] MEDS: dexAMETHasone 10 MG in SYRINGE 0 ML IV SCH (07:21)
--- NOTE | 2025-07-04 08:22 | Orthopedic Progress Note ---
Date of Service July 04, 2025 Assessment & Plan (1) Status post total left knee replacement: * Continue Current Treatment * Disposition: home * Daily treatment: Physical Therapy/ Occupational Therapy per protocol * Weight bearing status: WBAT * Continue to monitor for ABLA * Pain control * DVT prophylaxis, resume home dose Xarelto * Office/hospital f/u 2 weeks for progress check and staple/suture removal * Plan for discharge today pending PT/OT clearance Subjective . Active Problems: S/p left TKA POD 1 74 y/o female s/p left TKA. Doing well overall, pain managed and improved function. Denies fever/chills, chest pain/SOB, nausea/vomiting. Otherwise no complaints. Review of Systems All systems reviewed & are unremarkable except as noted in HPI & below. Physical Exam . * General: Alert and oriented, no acute distress * Constitutional: well-developed, well-nourished. * Respiratory: Normal respiratory effort, no distress * Gastrointestinal: No tenderness to palpation, no rigidity or guarding. * Skin: No rash or lesion. * Neurologic: Grossly normal * Musculoskeletal: left knee surgical dressing CDI, not removed for exam. Otherwise no obvious deformity or overlying skin changes RLE. Diffuse TTP distal thigh and knee region. Otherwise no specific tenderness of proximal thigh, lower leg, foot/ankle. AROM knee flexion 90 degrees. AROM foot/ankle intact. Sensation intact plantar/dorsal foot. Brisk capillary refill. Results & Data Results & Data Laboratory Results . Diagnostic Findings . Knee X-Ray 07/03/25 08:57 XR knee LT 1 or 2V routine CLINICAL HISTORY: Surgical Post Op COMPARISON: 04/30/2017 FINDINGS: Left knee prosthesis shows no hardware complication. There is expected soft tissue gas. Skin baron are present. IMPRESSION: Unremarkable postoperative exam. ACT 112: Negative or not required by law. Electronically signed by: Williams De Leon M.D. 07/03/2025 9:18 AM PG Care Time/CCT Total # of Minutes Spent Total Time Spent with Patient: Total time spent is greater than 50% in coordination of care (as documented) at patient's floor/unit and/or counseling patient: Coding Level of Care Code 34453 Post Operative Follow-Up Diagnoses Status post total left knee replacement Z96.652
== END 2025-07-04 10:52 | disposition home health service (06) ==
LOC: 3E 05:30 → ASU 05:30